=== PATIENT | male | born 1955 | race Caucasian/White ===

== ENCOUNTER 2023-02-20 22:01 | Emergency (ER) | payer MEDICARE ==
[2023-02-20] MEDS ORDERED: FAMOTIDINE 20MG/2ML IV (PEPCID) IV STA (22:07)
--- NOTE | 2023-02-20 22:07 | ED Chest Pain ---
General Stated Complaint: severe chest pains History of Present Illness Date Seen by Provider: February 20, 2023 Time Seen by Provider: 22:03 Initial Comments 67-year-old male presents with epigastric/mid chest pain has been going on for about 8 hours. Patient reports that he noticed it when he got up from a nap and has been getting worse. Maybe a little bit of a minor shortness of breath. No diaphoresis. Pain does not radiate. Patient does have a prior stent history around 2014. Allergies and Home Medications Allergies Coded Allergies: atorvastatin (Verified Allergy, Unknown, 02/20/23) hydrocodone (Verified Allergy, Unknown, 02/20/23) oseltamivir (Verified Allergy, Unknown, 02/20/23) Patient Home Medication List Home Medication List Reviewed: Yes Review of Systems Review of Systems Constitutional: no symptoms reported Respiratory: See HPI Cardiovascular: Chest Pain; Denies Irregular Heart Rate, Denies Lightheadedness, Denies Palpitations Gastrointestinal: See HPI; Denies Diarrhea, Denies Vomiting Genitourinary: No Symptoms Reported Musculoskeletal: no symptoms reported Skin: no symptoms reported Psychiatric/Neurological: No Symptoms Reported Endocrine: No Symptoms Reported Physical Exam Vital Signs Vital Signs - First Documented 02/20/23 22:02 Temp 36.8 Pulse 73 Resp 16 B/P (MAP) 157/87 (110) Pulse Ox 97 O2 Delivery Room Air Capillary Refill : Height, Weight, BMI Height: '" Weight: lbs. oz. kg; BMI Method: General Appearance: No Apparent Distress Neck: Non Tender, Supple Respiratory: Lungs Clear, Normal Breath Sounds Cardiovascular: Regular Rate, Rhythm, No Edema Gastrointestinal: Soft, Tenderness (Mild epigastric) Extremity: Normal Capillary Refill, Normal Inspection, Normal Range of Motion Neurologic/Psychiatric: Alert, Oriented x3, No Motor/Sensory Deficits, Normal Mood/Affect, margin analyst II-XII Norm as Tested Skin: Normal Color, Warm/Dry Progress/Results/Core Measures Results/Orders Lab Results Laboratory Tests Test 02/20/23 22:07 Range/Units White Blood Count 10.0 4.3-11.0 10^3/uL Red Blood Count 4.59 4.30-5.52 10^6/uL Hemoglobin 14.6 13.3-17.7 g/dL Hematocrit 42 40-54 % Mean Corpuscular Volume 92 80-99 fL Mean Corpuscular Hemoglobin 32 25-34 pg Mean Corpuscular Hemoglobin Concent 35 32-36 g/dL Red Cell Distribution Width 12.2 10.0-14.5 % Platelet Count 228 130-400 10^3/uL Mean Platelet Volume 10.9 9.0-12.2 fL Immature Granulocyte % (Auto) 0 % Neutrophils (%) (Auto) 74 42-75 % Lymphocytes (%) (Auto) 17 12-44 % Monocytes (%) (Auto) 5 0-12 % Eosinophils (%) (Auto) 4 0-10 % Basophils (%) (Auto) 1 0-10 % Neutrophils # (Auto) 7.3 1.8-7.8 10^3/uL Lymphocytes # (Auto) 1.7 1.0-4.0 10^3/uL Monocytes # (Auto) 0.5 0.0-1.0 10^3/uL Eosinophils # (Auto) 0.4 H 0.0-0.3 10^3/uL Basophils # (Auto) 0.1 0.0-0.1 10^3/uL Immature Granulocyte # (Auto) 0.0 0.0-0.1 10^3/uL Sodium Level 140 135-145 MMOL/L Potassium Level 3.8 3.6-5.0 MMOL/L Chloride Level 101 98-107 MMOL/L Carbon Dioxide Level 23 21-32 MMOL/L Anion Gap 16 H 5-14 MMOL/L Blood Urea Nitrogen 17 7-18 MG/DL Creatinine 1.06 0.60-1.30 MG/DL Estimat Glomerular Filtration Rate 78 BUN/Creatinine Ratio 16 Glucose Level 105 70-105 MG/DL Calcium Level 9.7 8.5-10.1 MG/DL Corrected Calcium 8.5-10.1 MG/DL Magnesium Level 1.9 1.6-2.4 MG/DL Total Bilirubin 0.7 0.1-1.0 MG/DL Aspartate Amino Transf (AST/SGOT) 21 5-34 U/L Alanine Aminotransferase (ALT/SGPT) 13 0-55 U/L Alkaline Phosphatase 38 L 40-136 U/L Troponin I < 0.30 <0.30 NG/ML C-Reactive Protein < 0.30 <0.50 MG/DL Pro-B-Type Natriuretic Peptide 36.0 <125.0 PG/ML Total Protein 7.6 6.4-8.2 GM/DL Albumin 4.8 H 3.2-4.5 GM/DL Lipase 46 8-78 U/L My Orders Orders - NOEMI WHITE DO Cbc With Automated Diff (02/20/23 22:07) Comprehensive Metabolic Panel (02/20/23 22:07) Lipase (02/20/23 22:07) Magnesium (02/20/23 22:07) Probnp Fs (02/20/23 22:07) Crp Fs (02/20/23 22:07) Troponin I Fs (02/20/23 22:07) Famotidine Injection (Pepcid Injection) (02/20/23 22:07) Aspirin Chewable Tablet (Baby Aspirin Ch (02/20/23 22:15) Ed Iv/Invasive Line Start (02/20/23 22:07) Ekg Tracing (02/20/23 22:07) Chest 1 View Ap/Pa Only (02/20/23 22:07) Ketorolac Injection (Toradol Injection) (02/20/23 22:11) Lidocaine 2% Viscous 15 Ml (Xylocaine Vi (02/20/23 22:45) Antacid Suspension (Mylanta Suspension (02/20/23 22:45) Medications Given in ED Current Medications Medications Dose Ordered Sig/Brandon Route Start Time Stop Time Status Last Admin Dose Admin Al Hydrox/Mg Hydrox/Simethicone 30 ml ONCE ONCE PO 02/20/23 22:45 02/20/23 22:46 DC 02/20/23 22:43 30 ML Aspirin 324 mg ONCE ONCE PO 02/20/23 22:15 02/20/23 22:16 DC 02/20/23 22:18 324 MG Lidocaine HCl 15 ml ONCE ONCE PO 02/20/23 22:45 02/20/23 22:46 DC 02/20/23 22:44 15 ML Vital Signs/I&O 02/20/23 02/20/23 22:02 23:13 Temp 36.8 Pulse 73 75 Resp 16 20 B/P (MAP) 157/87 (110) 128/74 Pulse Ox 97 96 O2 Delivery Room Air Room Air Progress Progress Note : Progress Note Patient's diagnostic studies were ordered reviewed and interpreted by me. Patient had no acute findings or significant changes on his labs. Patient had a negative troponin greater than 8 hours after the symptoms started. His symptoms were not consistent with ACS or acute cardiac events. Patient's symptoms did resolve with treatment. Patient's chest x-ray was reviewed with initial interpretation by me with final interpretation per radiology report. Patient's EKG shows sinus rhythm, ventricular rate 68 DC 148 QRS [address] changes or elevation. Discussed with patient need to follow-up with his primary care provider and environmental specialist for further evaluation on outpatient basis next week. Patient was stable and discharged home Initial ECG Impression Date: February 20, 2023 Initial ECG Impression Time: 22:04 Initial ECG Rate: 68 Initial ECG Rhythm: Normal Sinus Initial ECG Impression: Nonspecific Changes Comment No acute ST changes or elevation noted Diagnostic Imaging Diagonstic Imaging: Xray Comments No acute findings Reviewed: Reviewed by Me, Reviewed/Discussed Departure Impression Primary Impression: Epigastric discomfort Disposition: 01 HOME, SELF-CARE Condition: Stable Departure-Patient Inst. Patient Instructions: Chest Pain That Is Not Caused by the Heart (DC), Acid Reflux and GERD in Adults (DC) Add. Discharge Instructions: Please follow-up next week with your primary care provider and environmental specialist for further evaluation and work-up. Return to the ER with any concerns. NOEMI WHITE DO February 20, 2023 22:07
[2023-02-20] MEDS ORDERED: KETOROLAC 30 MG/ML VIAL IVP STA (22:11)
[2023-02-20 22:12] LABS: BASOPHILS # (AUTO) 0.1 10^3/uL (0.0-0.1); BASOPHILS % (AUTO) 1 % (0-10); EOSINOPHILS # (AUTO) 0.4 10^3/uL (0.0-0.3); EOSINOPHILS % (AUTO) 4 % (0-10); HEMATOCRIT 42 % (40-54); HEMOGLOBIN 14.6 g/dL (13.3-17.7); LYMPHOCYTES # (AUTO) 1.7 10^3/uL (1.0-4.0); LYMPHOCYTES % (AUTO) 17 % (12-44); MEAN CORPUSCULAR HEMOGLOBIN 32 pg (25-34); MEAN CORPUSCULAR HGB CONC 35 g/dL (32-36); MEAN CORPUSCULAR VOLUME 92 fL (80-99); MEAN PLATELET VOLUME 10.9 fL (9.0-12.2); MONOCYTES # (AUTO) 0.5 10^3/uL (0.0-1.0); MONOCYTES % (AUTO) 5 % (0-12); NEUTROPHILS # (AUTO) 7.3 10^3/uL (1.8-7.8); NEUTROPHILS % (AUTO) 74 % (42-75); PLATELET COUNT 228 10^3/uL (130-400)
[2023-02-20] MEDS ORDERED: ASPIRIN 81 MG CHEW (CHILDREN'S ASA) PO ONE (22:15)
[2023-02-20 22:32] LABS: ALANINE AMINOTRANSFERASE 13 U/L (0-55); ALBUMIN 4.8 GM/DL (3.2-4.5); ALKALINE PHOSPHATASE 38 U/L (40-136); BILIRUBIN,TOTAL 0.7 MG/DL (0.1-1.0); BUN/CREATININE RATIO 16; CALCIUM 9.7 MG/DL (8.5-10.1); CARBON DIOXIDE 23 MMOL/L (21-32); CHLORIDE 101 MMOL/L (98-107); CREATININE SERUM 1.06 MG/DL (0.60-1.30); GFR ESTIMATED 78; GLUCOSE 105 MG/DL (70-105); LIPASE 46 U/L (8-78); MAGNESIUM 1.9 MG/DL (1.6-2.4); POTASSIUM 3.8 MMOL/L (3.6-5.0); SODIUM 140 MMOL/L (135-145); TOTAL PROTEIN 7.6 GM/DL (6.4-8.2)
[2023-02-20] MEDS ORDERED: ANTACID SUSP 30 ML UDC (MYLANTA) PO ONE (22:45)
[2023-02-20] MEDS ORDERED: LIDOCAINE 2% VISCOUS 15 ML UDC PO ONE (22:45)
[2023-02-20 23:13] VITALS: BP 128/74
--- NOTE | 2023-02-21 07:12 | Diagnostic Imaging Report ---
CHEST 1 VIEW AP/PA ONLY Indication: Chest pain. Comparison: None available. Findings: Portions of the right costophrenic angle are excluded from the [id number]. No focal airspace disease in the visualized lungs. No pleural effusion or pneumothorax. Normal cardiomediastinal silhouette. Impression: 1. No acute cardiopulmonary process by portable radiography. Dictated by: Dictated on workstation # [id number]
== END 2023-02-20 23:15 | disposition home or self-care (01) ==
LOC: ER FS 22:06
DX: R10.13 Epigastric pain (principal); Z28.310 Unvaccinated for COVID-19
CPT/HCPCS: 36415; 71045; 80053; 83690; 83735; 83880; 84484; 85025; 86141; 93005